=== PATIENT | female | born 1980 | race Caucasian/White ===

== ENCOUNTER 2020-03-27 11:02 | Outpatient (REF) | payer BC, SELFPAY ==
--- NOTE | 2020-03-27 10:15 | PAPFT_PTH ---
PATIENT: COLEMAN STOVALL LOC: [facility] U#:[id number] AGE/SX: 39/F ROOM: RE03/27/[address]: OLI Marshall : 1980 BED: DIS: 03/27/2020 SPEC #: [id number] RECD: 03/27/20 13:10 STATUS: ANGEL RENaomi #: [id number] CHON: 03/27/20 10:[address]: Rosalba Connor DEPT: [facility] Cytology RECD BY: Concepcion Taylor ENTERED: 03/27/20 13:11 SP TYPE: PAPFT OTHR DR: Vanessa Rosas Tissues: 1 - CX/ENDOCX FOR PAP SMEARS Procedures: PAP THIN PREP/[facility] Screening HPV DNA PROBE Comments: [id number]
[2020-03-30 15:09] LABS: Chlamydia Result Negative (Negative); GC Result Negative (Negative)
== END 2020-03-27 11:22 ==
LOC: LBN 11:02
PROVIDERS: PCP Internal Medicine; Visit Provider Nurse Practitioner Family
DX: Z12.4 Encounter for screening for malignant neoplasm of cervix (principal); Z11.51 Encounter for screening for human papillomavirus (HPV)
CPT/HCPCS: 87491; 87591; 88142; 87624

== ENCOUNTER 2020-04-10 03:18 | Outpatient (CLI) | payer BC, SELFPAY ==
--- NOTE | 2020-04-10 07:00 | DI.US_ITS ---
EXAM: US PELVIS TRANSVAGINAL CLINICAL HISTORY: pelvic pain,R10.2 TECHNIQUE: Transabdominal and transvaginal imaging was performed using standard protocol. COMPARISON: No exams were available for comparison FINDINGS: KIDNEYS: Kidneys are symmetric in size. No evidence of renal calculi. No evidence of hydronephrosis. No renal mass or cyst identified. UTERUS: Anteverted. 8.1 x 3.9 x 5.2 cm Endometrium: 4 millimeters Myometrium: Unremarkable. Cervix: Unremarkable. OVARIES: Right: Cyst or mass: None. Left: Cyst or mass: None. DOPPLER: Color: Symmetric and uniform flow to both ovaries. No hyperemia. Duplex: Normal ovarian arterial waveforms visualized. CUL-DE-SAC: Free fluid: None. IMPRESSION: 1. Normal-appearing uterus with endometrial stripe within normal limits. 2. Unremarkable bilateral ovaries. DATA REPOSITORY:
== END 2020-04-10 03:38 ==
PROVIDERS: PCP Internal Medicine; Visit Provider Nurse Practitioner Family
DX: R10.2 Pelvic and perineal pain (principal)
CPT/HCPCS: 76830; 76856